=== PATIENT | female | born 2000 | race Caucasian/White ===

== ENCOUNTER 2020-11-07 23:56 | Emergency (ER) | payer OTHER ==
[~2020-11-07] VITALS: Ht 160 cm; Wt 107.5 kg
[2020-11-08 00:05] VITALS: Ht 160 cm; Wt 107.5 kg
[2020-11-08 01:10] LABS: BASOPHIL % 0.1 % (0.2-1.3); PLATELET COUNT 303 x10^3mcL (179-408)
[2020-11-08 01:41] LABS: ovalocyte/elliptocyte 1+; rbc morphology (normal/abnorm) ABNORMAL (NORMAL)
[2020-11-08 02:18] VITALS: BP 113/46
== END 2020-11-08 02:18 | disposition home or self-care (01) ==
LOC: ED 23:56
PROVIDERS: Student in an Organized Health Care Education/Training Program
DX: O44.01 Complete placenta previa NOS or without hemorrhage, first trimester (principal); O99.011 Anemia complicating pregnancy, first trimester; Z3A.00 Weeks of gestation of pregnancy not specified